=== PATIENT | female | born 1995 | race African-American/Black ===

== ENCOUNTER 2022-08-18 10:42 | Emergency (ER) | payer OTHER ==
[2022-08-18] MEDS ORDERED: ACETAMINOPHEN 325 MG TABLET (FP) PO ONE (10:55)
[2022-08-18 11:03] VITALS: BP 120/71; BMI 24.7
[2022-08-18] MEDS ORDERED: ACETAMINOPHEN 325 MG TABLET (FP) ONE (11:07)
[2022-08-18 11:55] VITALS: PULSE 99; RESP 16; TEMP 101.9
== END 2022-08-18 11:40 | disposition home or self-care (01) ==
LOC: FER 10:42
DX: B34.9 Viral infection, unspecified (principal)
CPT/HCPCS: 0241U-QW; 99283-25